=== PATIENT | male | born 1975 | race Caucasian/White ===

== ENCOUNTER 2018-02-27 19:29 | Emergency (ER) | payer OTHER ==
[2018-02-27] MEDS ORDERED: IBUPROFEN 600 MG TAB PO ONE (19:58)
--- NOTE | 2018-02-27 19:59 | EDPHY ---
General Time Seen by Provider: 02/27/18 19:49 Narrative: CHIEF COMPLAINT: Ankle injury HISTORY OF PRESENT ILLNESS: Patient complains of left ankle pain status post running injury. He was running just prior to arrival on a trail, when he injured the left ankle. He thinks it inverted. He felt a sudden onset of pain and "a loud audible pop." Significant pain that he had to walk back to his vehicle with. He now has too much pain to ambulate on it. No numbness or tingling. No injury elsewhere. No other associated complaints or modifying factors. DOMINANT EXTREMITY: Right ESTABLISHED ORTHOPEDIST: None locally. REVIEW OF SYSTEMS: Ten systems reviewed and are negative unless otherwise noted in the HPI PAST MEDICAL HISTORY: Orthopedic injuries PAST SURGICAL HISTORY: Orthopedic surgeries SOCIAL HISTORY: Never smoker. Lives and works here independently. He works in [employer] FAMILY HISTORY: Noncontributory EXAMINATION General Appearance: Alert, no distress Cardiovascular: Strong 2+ DP PT pulses on the left. Brisk cap refill the left foot. Neurological: A&O, sensory symmetric, strength of the great toe symmetric Skin: Warm and dry, no rash. No petechiae or purpura. Mild ecchymosis of the left lateral malleolus. No puncture or laceration Extremities: Swelling, ecchymosis and tenderness of the left lateral malleolus. Minimal tenderness of the medial malleolus. Range of motion not tested due to swelling and pain at this time. He is neurovascular intact distally with no pain in the left midfoot or left calcaneus with from palpation. All compartments are soft the left lower extremity. Psychiatric: Mood and affect normal DIFFERENTIAL DIAGNOSES: Including but not limited to ankle sprain, fibular fracture, tibia fracture, talar fracture, strain, Lisfranc fracture MDM: 8:00 p.m. Acute injury to the left ankle with at least a sprain. He does have swelling and pain over the lateral malleolus. No pain or swelling of the proximal fibula or anywhere else. X-ray is pending. He is ibuprofen. He has no acute distress, neurovascular intact distal to the injury 8:45 p.m. My initial interpretation of the x-ray was suspected medial malleolar fracture. I will place him in a splint for this. 9:05 p.m. Case discussed with radiologist. I discussed my area of concern, and he has informed me that this is an old area of avulsion injury with well-healed margins. This does clinically match the patient's history as well. Thus he will be placed in a Unity boot rather than a posterior splint. We will provide crutches for him and asked the remain nonweightbearing until seen by orthopedist for definitive care. ED precautions discussed. Ice and elevation discussed. He is declining narcotic pain medication and feels that his pain is tolerable. He will continue ibuprofen. Discharged home stable condition. SUPERVISION: This patient was independently evaluated without direct involvement of or examination by the attending physician. ED Precautions: Worsening pain. Erythema, edema, cyanosis, pallor, paresthesia or anesthesia. - Diagnostics Imaging Results: Imaging Impressions Ankle X-Ray 02/27/18 19:39 Impression: No acute osseous findings. - History Smoking Status: Never smoked - Objective Vital Signs: Initial Vital Signs Temperature (C) 97.9 F 02/27/18 19:31 Heart Rate 70 02/27/18 19:31 Respiratory Rate 16 02/27/18 19:31 Blood Pressure 132/66 H 02/27/18 19:31 O2 Sat (%) 95 02/27/18 19:31 O2 Delivery Mode Room Air Allergies/Adverse Reactions: horse dander Allergy (Verified 02/27/18 19:35) sunflower oil Allergy (Verified 08/13/16 17:55) sunflower seed Allergy (Verified 08/13/16 17:55) Home Medications: Medication Instructions Recorded NK [No Known Home Meds] 02/27/18 Medications Given: Discontinued Medications Ibuprofen (Motrin) 600 mg PO EDNOW ONE Stop: 02/27/18 19:59 Last Admin: 02/27/18 20:02 Dose: 600 mg Departure - Departure Disposition: Home, Routine, Self-Care Clinical Impression: Left ankle sprain Qualifiers: Encounter type: initial encounter Involved ligament of ankle: unspecified ligament Qualified Code(s): S93.402A - Sprain of unspecified ligament of left ankle, initial encounter Condition: Good Instructions: Ankle Sprain (ED) Additional Instructions: 1. Lazaro boot and crutches as discussed at all times when weight-bearing 2. Contact orthopedist on Thursday morning for outpatient definitive care 3. ED precautions as discussed Referrals: Kartik Gardiner MD [Medical Doctor] - As per Instructions
[2018-02-27 21:38] VITALS: BP 124/70
== END 2018-02-27 21:39 | disposition home or self-care (01) ==
DX: S93.402A Sprain of unspecified ligament of left ankle, initial encounter (principal); X50.9XXA Other and unspecified overexertion or strenuous movements or postures, initial encounter; Y92.89 Other specified places as the place of occurrence of the external cause; Y99.8 Other external cause status; Y93.02 Activity, running
CPT/HCPCS: L4386

== ENCOUNTER 2019-01-12 07:38 | Emergency (ER) | payer OTHER ==
[2019-01-12] MEDS ORDERED: HYOSCYAMINE SULFATE 0.125 MG TAB PO ONE (07:55)
[2019-01-12] MEDS ORDERED: LIDOCAINE 2% VISCOUS 15 ML UDCUP PO ONE (07:55)
[2019-01-12] MEDS ORDERED: MAG HYDROX/AL HYDROX/SIMETH 30 ML UDCUP PO ONE (07:55)
--- NOTE | 2019-01-12 07:56 | EDPHY ---
H & P Time Seen by Provider: 01/12/19 07:50 HPI/ROS: CHIEF COMPLAINT: Severe lower chest and epigastric pain HISTORY OF PRESENT ILLNESS: Takes ranitidine for GERD, had oral surgery yesterday gum grafting. Took Tylenol and ibuprofen and codeine yesterday, had never had codeine before. Decreased oral intake after surgery. Awakened today at 7:30 a.m. With severe lower chest and epigastric pain not better worse with anything and associated with hyperventilation and feeling a little short of breath. Does not radiate. REVIEW OF SYSTEMS: Eye: No change in vision ENT: Has a little bit of mouth pain from his gun grafting Cardiac: HPI no palpitations or syncope Pulmonary: HPI hyperventilation and feeling mildly short of breath Abdomen: HPI no vomiting or diarrhea Musculoskeletal: no back pain Skin: no rash Neuro: no headache, feels a little bit of numbness and tingling in both arms and hands. Constitutional: no fever : no urinary symptoms A comprehensive 10 point review of systems is otherwise negative aside from elements mentioned in the history of present illness. PAST MEDICAL HISTORY: ACL repair and GERD Social history: Nonsmoker General Appearance: Alert and conversant, cooperative. Eyes: No scleral icterus. ENT, Mouth: Normal mucous membranes. Respiratory: Normal respiratory effort, breath sounds equal, lungs are clear to auscultation. Cardiovascular: Regular rate and rhythm. Gastrointestinal: Mild epigastric tenderness without rebound or guarding and no Yap sign or McBurney's point tenderness. Neurological: Alert, face symmetric, normal motor and sensory in extremities. Normal radial pulses bilaterally. Ambulatory. Skin: Warm and dry, no rashes. Musculoskeletal: No peripheral edema. Psychiatric: Moderately anxious. Emergency Department course/MDM: Plan for CBC chemistry LFT, GI cocktail, EKG and chest x-ray. I think that ACS and pulmonary embolism are unlikely. I think that pancreatitis and hepatitis and cholecystitis or less likely, the most likely thing is that he worsened his GERD by taking ibuprofen Tylenol steroids and codeine on decreased oral intake after his gum surgery. Resultant hyperventilation, likely reason for numbness in his chest and arms. I think that aortic dissection unlikely. 12-lead EKG interpreted by me; official reading is in computer system. My interpretation is sinus rhythm rate 47 with early repolarization. 905: Feeling better but still a little bit symptomatic. Better after GI cocktail. The plan for oral antacid, continue ranitidine, stable for discharge. Smoking Status: Never smoked Constitutional: Initial Vital Signs Temperature (C) 36.8 C 01/12/19 07:44 Heart Rate 54 L 01/12/19 07:44 Respiratory Rate 30 H 01/12/19 07:44 Blood Pressure 106/45 L 01/12/19 07:44 O2 Sat (%) 100 01/12/19 07:44 O2 Delivery Mode Room Air Allergies/Adverse Reactions: horse dander Allergy (Verified 01/12/19 07:40) sunflower oil Allergy (Verified 01/12/19 07:40) sunflower seed Allergy (Verified 01/12/19 07:40) tetracycline Allergy (Verified 01/12/19 07:40) Home Medications: Medication Instructions Recorded Amoxicillin 01/12/19 Chlorhexidine Gluconate 01/12/19 Ibuprofen 01/12/19 Methylprednisolone 01/12/19 Ranitidine HCl 01/12/19 TYLENOL #3 01/12/19 Medical Decision Making - Diagnostics Imaging Results: Imaging Impressions Chest X-Ray 01/12/19 07:55 Impression: Excellent inspiration. Otherwise unremarkable. Imaging: I viewed and interpreted images myself - Data Points Laboratory Results: Laboratory Results 01/12/19 08:02 01/12/19 08:02 01/12/19 01/12/19 08:02 08:02 WBC 9.59 10^3/uL H 10^3/uL (3.80-9.50) RBC 5.18 10^6/uL 10^6/uL (4.40-6.38) Hgb 15.3 g/dL g/dL (13.7-17.5) Hct 45.2 % % (40.0-51.0) MCV 87.3 fL fL (81.5-99.8) MCH 29.5 pg pg (27.9-34.1) MCHC 33.8 g/dL g/dL (32.4-36.7) RDW 12.6 % % (11.5-15.2) Plt Count 360 10^3/uL 10^3/uL (150-400) MPV 8.8 fL fL (8.7-11.7) Neut % (Auto) 76.0 % H % (39.3-74.2) Lymph % (Auto) 19.9 % % (15.0-45.0) [place] % (Auto) 1.3 % L % (4.5-13.0) Eos % (Auto) 2.2 % % (0.6-7.6) Baso % (Auto) 0.3 % % (0.3-1.7) Nucleat RBC Rel Count 0.0 % % (0.0-0.2) Absolute Neuts (auto) 7.29 10^3/uL H 10^3/uL (1.70-6.50) Absolute Lymphs (auto) 1.91 10^3/uL 10^3/uL (1.00-3.00) Absolute Monos (auto) 0.12 10^3/uL L 10^3/uL (0.30-0.80) Absolute Eos (auto) 0.21 10^3/uL 10^3/uL (0.03-0.40) Absolute Basos (auto) 0.03 10^3/uL 10^3/uL (0.02-0.10) Absolute Nucleated RBC 0.00 10^3/uL 10^3/uL (0-0.01) Immature Gran % 0.3 % % (0.0-1.1) Immature Gran # 0.03 10^3/uL 10^3/uL (0.00-0.10) Sodium 137 mEq/L mEq/L (135-145) Potassium 4.5 mEq/L mEq/L (3.5-5.2) Chloride 101 mEq/L mEq/L (97-110) Carbon Dioxide 19 mEq/l L mEq/l (22-31) Anion Gap 17 mEq/L H mEq/L (6-14) BUN 18 mg/dL mg/dL (7-23) Creatinine 1.0 mg/dL mg/dL (0.7-1.3) Estimated GFR > 60 Glucose 206 mg/dL H mg/dL (70-100) Calcium 10.1 mg/dL mg/dL (8.5-10.4) Total Bilirubin 0.9 mg/dL mg/dL (0.1-1.4) Conjugated Bilirubin 0.2 mg/dL mg/dL (0.0-0.5) Unconjugated Bilirubin 0.7 mg/dL mg/dL (0.0-1.1) AST 78 IU/L H IU/L (17-59) ALT 69 IU/L IU/L (21-72) Alkaline Phosphatase 103 IU/L IU/L (38-126) Total Protein 7.7 g/dL g/dL (6.3-8.2) Albumin 4.8 g/dL g/dL (3.5-5.0) Lipase 82 IU/L IU/L (23-300) Medications Given: Discontinued Medications Al Hydroxide/Mg Hydroxide (Maalox Susp) 30 ml PO ONCE ONE Stop: 01/12/19 07:56 Last Admin: 01/12/19 07:58 Dose: 30 ml Hyoscyamine Sulfate (Levsin, Hyomax-Sl) 0.25 mg PO ONCE ONE Stop: 01/12/19 07:56 Last Admin: 01/12/19 07:58 Dose: 0.25 mg Lidocaine (Lidocaine 2% Viscous) 15 ml PO ONCE ONE Stop: 01/12/19 07:56 Last Admin: 01/12/19 07:58 Dose: 15 ml Lorazepam (Ativan Injection) 0.5 mg IVP EDNOW ONE Stop: 01/12/19 08:32 Last Admin: 01/12/19 08:34 Dose: 0.5 mg Departure - Departure Disposition: Home, Routine, Self-Care Clinical Impression: GERD (gastroesophageal reflux disease) Qualifiers: Esophagitis presence: esophagitis presence not specified Qualified Code(s): K21.9 - Gastro-esophageal reflux disease without esophagitis Condition: Good Instructions: Gastroesophageal Reflux Disease (ED) Additional Instructions: Try adding oral Maalox or Mylanta 30 min before taking medications. Normal EKG and chest x-ray. No evidence of elevated liver function tests or lipase. Referrals: NONE *PRIMARY CARE P,. [Primary Care Provider] - As per Instructions
--- NOTE | 2019-01-12 08:13 | CPEKG ---
Test Reason : OPEN Blood Pressure : / mmHG Vent. Rate : 047 BPM Atrial Rate : 047 BPM P-R Int : 166 ms QRS Dur : 104 ms QT Int : 566 ms P-R-T Axes : 070 002 007 degrees QTc Int : [address] elev, probable normal early repol pattern Prolonged QT interval Confirmed by Aurelia Camacho ([id number]) on 01/12/2019 8:12:41 AM Referred By: AURELIA CAMACHO Confirmed By:Aurelia Camacho
[2019-01-12 08:14] LABS: PLATELET COUNT 360 10^3/uL (150-400)
[2019-01-12 08:30] VITALS: BP 111/76
[2019-01-12] MEDS ORDERED: LORazepam 2 MG/ML INJ IVP ONE (08:31)
== END 2019-01-12 09:30 | disposition home or self-care (01) ==
DX: K21.9 Gastro-esophageal reflux disease without esophagitis (principal); I49.40 Unspecified premature depolarization; Z79.899 Other long term (current) drug therapy; Z98.890 Other specified postprocedural states
CPT/HCPCS: 96374; J2060